=== PATIENT | male | born 1960 | race African-American/Black ===

== ENCOUNTER 2020-01-17 11:02 | Emergency (ER) | payer OTHER ==
[~2020-01-17] VITALS: Ht 180.3 cm; Wt 86.2 kg
--- NOTE | 2020-01-17 11:15 | NUR ---
ED Nurse Note: pt presents to [facility] ALFARO x 2 weeks. pt states that he has been diagnosed with "cluster headaches."but does not take anything at home for them. 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
[2020-01-17 11:16] VITALS: BP 165/97
[2020-01-17] MEDS ORDERED: Ketorolac 60mg Inj IM ONE (11:45)
[2020-01-17] MEDS ORDERED: Prochlorperazine 10mg tab ORAL PRN (11:45)
--- NOTE | 2020-01-17 11:47 | NUR ---
ED Nurse Note: pt states " I don't have a headache at the moment" and asked how long medications will last and what he's gonna do if they come back once he's discharged. will hold meds for now, Dr. Lara at pt bedside
--- NOTE | 2020-01-17 12:26 | Diagnostic Imaging Report ---
Indications: Headache x2 weeks Technique: Spiral acquisitions obtained through the brain. Angled axial and coronal 5 x 5 mm slices were reconstructed. Total dose length product 1098 mGycm. CTDI vol(s) 53 mGy. Dose reduction achieved using automated exposure control Comparison: None. Findings: No acute intracranial hemorrhage or edema, mass effect, nor midline shift. Normal ayala-white differentiation. Normal size ventricles extra axial CSF spaces. The calvarium is intact. The mastoids are clear. Visualized orbits and sinuses are unremarkable. Impression: Negative The CT scanner at [facility] is accredited by the [employer] and the scans are performed using protocols designed to limit radiation exposure to as low as reasonably achievable to attain images of sufficient resolution adequate for diagnostic evaluation.
[2020-01-17] MEDS ORDERED: TYLENOL EXTRA500 MG ORAL (13:08)
[2020-01-17 13:15] VITALS: BP 165/97
--- NOTE | 2020-01-17 13:15 | NUR ---
ER DISCHARGE NOTE: Patient is cleared to be discharged per ERMD, pt is aox4, on room air, with stable vital signs. pt was given dc and prescription instructions, pt was able to verbalize understanding, pt id band removed without complications. pt is able to ambulate with steady gait. pt took all belongings.
--- NOTE | 2020-01-17 15:48 | Emergency Room Report ---
History of Present Illness General Chief Complaint: Headache Source: Patient Present Illness HPI 59M no PMHx c/o atraumatic throbbing bitemporal headache x 1-2 weeks. Denies head trauma, fall, syncope, seizure, dizziness, blurred vision, tinnitus, hearing changes, slurred speech, difficulty walking, CP, back pain, abdominal pain or other issues. Does not take blood thinners. States that onset was gradual. Is similar to previous ALFARO he's had in the past. The patient's symptoms were gradual onset, severity was moderate, duration since 1-2 weeks. Quality: aching. currently denies any symptoms of headache, but states it only happens at night Denies kerosene/propane, fires, etc Has not tried anything to alleviate his symptoms Past medical history: Denies Past surgical history: Denies Smoking: Denies Alcohol use: Denies Drug use: Denies Review of systems: CONST: No fevers or chills, No night sweats PULMONARY: No productive cough, No shortness of breath CARDIAC: No chest pain, No palpitations GI: No vomiting, No diarrhea , No melena_or_BRBPR : No dysuria, No hematuria, No discharge NEURO: No new_focal_weakness_or_numbness, No confusion, No vision changes 14 point Review of Systems is otherwise negative except per HPI Physical Exam: GENERAL: Awake_alert_ nontoxic, no acute distress Spo2 99% on RA -normal EYES: Extraocular muscles are intact. Conjunctivae clear. Lids without swelling ENT: External nose and ear normal_in_appearance. Oropharynx clear. Head_atraumatic, Moist_oral_mucosa NECK: No JVD. No meningismus. No thyromegaly. Supple. Trachea midline RESP: Normal respiratory effort. Symmetric rise. No stridor. Clear_to_auscultation_No_rales_No_wheezes CARDIAC: Regular rate and regular rhytm. No_significant pedal edema. ABDOMEN: Soft. Nondistended. Nontender_No_rebound_or_guarding. MSK: Normal muscle tone, without rigidity. Extremities without asymmetric deformity or swelling. SKIN: Warm and dry. No visible cyanosis or pallor NEUROLOGIC: Alert, oriented x3. Motor_and_sensation_grossly_intact. No truncal ataxia. Gait_normal No nystagmus. Normal finger to nose. Normal Rapid alternating movement. Negative romberg Psych: Normal mood and affect, normal judgment and insight - COORDINATION OF CARE Case was discussed with: Patient Any imaging that were ordered were interpreted as part of the medical decision making: Medical Decision Making/Plan: Differential for the patients headache includes primary headache (migraine, tension, cluster), subarachnoid hemorrhage, intracranial mass / tumor, mening itis, encephalitis, increased intracranial pressure, mastoiditis, acute sinusitis, dural venous thrombosis, temporal arteritis, acute angle closure glaucoma, among others. Headache not sudden and severe, not worst headache of life, no family hx of SAH, neurologically intact without any persistent vomiting. Not consistent with subarachnoid hemorrhage, dural venous thrombosis, increased intracranial pressure, or significant tumor at this time. Patient without meningismus, mastoid / sinus tenderness, altered mental status or seizure. Doubt subdural abscess, meningitis, encephalitis, mastoiditis. No significant trauma mechanism, not anticoagulated. No evidence of subdural / epidural hematoma. No temporal tenderness, jaw claudication or vision loss. Eyes are reactive, with normal appearing anterior chambers. No evidence of temporal arteritis or acute angle closure glaucoma. Given the patients presentation,despite normal neurologic exam, advanced imaging of the head with CT was felt to indicated and was obtained after weighing the risks and benefits of radiation to rule out cause of increased intracranial pressure such as tumor or mass which was negative. CT negative for tumor / mass / bleed. Remains neuro intact, all sx resolved prior to arrival. Pt was offered compazine / toradol / benadryl but declined. Pertinent results reviewed with the patient. I educated the patient on the current treatment plan including the risks, benefits, and alternatives. I also discussed the extent and limitations of the current evaluation. The patient expressed understanding and agreement with plan. I recommended PMD follow-up within 1-2 days. Also advised that the patient return to the Emergency Department as soon as possible if they experience any new, persistent, or wors ening symptoms. 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 Normal ayala-white differentiation. Normal size ventricles extra axial CSF spaces. The calvarium is intact. The mastoids are clear. Visualized orbits and sinuses are unremarkable. Impression: Negative Last Vital Signs Date Time Temp Pulse Resp B/P (MAP) Pulse Ox O2 Delivery O2 Flow Rate FiO2 01/17/20 13:15 97.0 86 17 165/97 99 Room Air Disposition: HOME, SELF-CARE Admit Decision Time: 13:15 Condition: Stable Scripts Acetaminophen* (TYLENOL EXTRA STRENGTH*) 500 Mg Tablet 500 MG ORAL Q8H PRN for Prn Headache/Temp > 101, #30 TAB 0 Refills Prov: Sakshi Lara D.O. 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 Follow-up with your doctor sooner if your condition requires a more timely clinical reevaluation. Return to the emergency department immediately if you feel that your condition is worsening or if you have any new or concerning symptoms. Review your discharge instructions and take any prescriptions given as instructed. [facility] PROVIDES FREE OR LOW-COST HEALTH SERVICES TO PEOPLE WHO CAN SHOW PROOF THAT THEY LIVE IN [facility]. TO FIND MORE CLINICS PARTNERED WITH THE [facility] TO PROVIDE SERVICE, PLEASE CALL . Sakshi Lara D.O. Jan 17, 2020 15:48
== END 2020-01-17 13:15 | disposition home or self-care (01) ==
LOC: EMR 11:30
DX: R51.9 Headache, unspecified (principal); Z88.0 Allergy status to penicillin
CPT/HCPCS: 70450; Z7502; 99284